=== PATIENT | male | born 1935 | race Caucasian/White ===

== ENCOUNTER → 2016-06-30 | Outpatient (REF) | payer MEDICARE ==
[~2016-06-30] MED LIST: /WARF5TA PO; ACET500T PO; ASPI81TA51 PO; FISHOIL OR; GABA300C2 PO; LISI5TAB PO; NEUR300C PO; PERCOCET PO; SIMV20TA2 PO; tramadol OR; vitamin B12 OR
[2016-06-30 11:39] LABS: INR 2.9
== END ==
LOC: M SFHCCLAY 08:23
PROVIDERS: ATTEND Family Medicine
DX: Z79.01 Long term (current) use of anticoagulants (principal)

== ENCOUNTER → 2016-07-28 | Outpatient (REF) | payer MEDICARE ==
[2016-07-28 11:46] LABS: INR 2.76
== END ==
LOC: M SFHCCLAY 07:46
PROVIDERS: ATTEND Family Medicine
DX: Z79.01 Long term (current) use of anticoagulants (principal)

== ENCOUNTER → 2016-08-25 | Outpatient (REF) | payer MEDICARE ==
[2016-08-25 12:13] LABS: INR 2.53
== END ==
LOC: M SFHCCLAY 07:51
PROVIDERS: ATTEND Family Medicine
DX: H34.9 Unspecified retinal vascular occlusion (principal)

== ENCOUNTER → 2016-09-22 | Outpatient (REF) | payer MEDICARE ==
[2016-09-22 13:13] LABS: INR 2.54
== END ==
LOC: M SFHCCLAY 07:30
PROVIDERS: ATTEND Family Medicine
DX: Z79.01 Long term (current) use of anticoagulants (principal)

== ENCOUNTER → 2016-10-19 | Outpatient (REF) | payer MEDICARE ==
[2016-10-19 12:20] LABS: INR 2.93
== END ==
LOC: M SFHCCLAY 07:31
PROVIDERS: ATTEND Family Medicine
DX: Z79.01 Long term (current) use of anticoagulants (principal)

== ENCOUNTER → 2016-11-15 | Outpatient (REF) | payer MEDICARE ==
[2016-11-15 11:31] LABS: INR 1.93
[2016-11-15 11:43] LABS: VITAMIN B12 LEVEL 449 PG/ML (247-911)
[2016-11-15 11:57] LABS: ALBUMIN 3.2 GM/DL (3.2-5.2); ALBUMIN/GLOBULIN RATIO 0.76 (1.00-1.93); ALKALINE PHOSPHATASE 61 U/L (45-117); ALT/SGPT 11 U/L (12-78); ANION GAP 9 MEQ/L (8-16); AST/SGOT 11 U/L (15-37); BILIRUBIN,TOTAL 0.3 MG/DL (0.2-1.0); BLOOD UREA NITROGEN 14 MG/DL (7-18); CALCIUM LEVEL 9.2 MG/DL (8.8-10.2); CARBON DIOXIDE LEVEL 26 MEQ/L (21-32); CHLORIDE LEVEL 105 MEQ/L (98-107); CHOLESTEROL LEVEL 110 MG/DL (<200); CREATININE FOR GFR 1.18 MG/DL (0.70-1.30); GLOMERULAR FILTRATION RATE > 60.0 (>35); GLUCOSE, FASTING 80 MG/DL (83-110); POTASSIUM SERUM 3.9 MEQ/L (3.5-5.1); SODIUM LEVEL 140 MEQ/L (136-145); TOTAL PROTEIN 7.4 GM/DL (6.4-8.2); TRIGLYCERIDES LEVEL 54 MG/DL (<150)
== END ==
LOC: M SFHCCLAY 07:23
PROVIDERS: ATTEND Family Medicine
DX: R41.3 Other amnesia (principal); H34.11 Central retinal artery occlusion, right eye

== ENCOUNTER → 2016-11-19 | Outpatient (CLI) | payer MEDICARE ==
--- NOTE | 2016-11-19 16:36 | REP ---
MRI BRAIN WITHOUT CONTRAST: HISTORY: Right eye visual loss. Scattered punctate areas of increased signal intensity on T2-weighted images are present in the periventricular and subcortical white matter. This represents small vessel ischemic disease. There is no intraparenchymal hemorrhage, infarct, mass or midline shift. The ventricular system and cortical sulci are dilated consistent with mild volume loss. There is no extracerebral collection. The sinuses are clear. IMPRESSION: 1. Small vessel ischemic disease. 2. Mild volume loss. Signed by Joseluis Tapia MD 11/19/2016 04:41 P
--- NOTE | 2016-11-19 16:49 | REP ---
MRA BRAIN WITHOUT CONTRAST: HISTORY: Right eye visual loss. 3D TOF MR angiography was performed at the level of the [place]. There is no aneurysm or arteriovenous malformation. Mild atherosclerotic disease involves the cavernous and supraclinoid internal carotid arteries. Major intracranial vessels are patent. The right vertebral artery is dominant. IMPRESSION: 1. There is no aneurysm or arteriovenous malformation. 2. Atherosclerotic disease as described above. Signed by Joseluis Tapia MD 11/19/2016 04:54 P
--- NOTE | 2016-11-22 09:35 | REP ---
URINARY BLADDER ULTRASOUND: Real-time sonographic evaluation of the urinary bladder performed. Bladder is mildly distended with no gross mass or calculus. It measures 7.1 x 7.7 x 4.4 cm for a total volume of 157 mL. Ureteral jets could not be visualized with Doppler color evaluation. Postvoid residual is 71 mL which is 45% of the original volume. IMPRESSION: No gross mass or calculus. Postvoid residual of 45% although the initial bladder volume is somewhat low as the bladder is not optimally distended. Signed by Trevin Snell MD 11/22/2016 08:16 P
== END ==
LOC: M RAD 12:46
PROVIDERS: ATTEND Family Medicine
DX: R41.3 Other amnesia (principal); H34.11 Central retinal artery occlusion, right eye

== ENCOUNTER → 2016-12-14 | Outpatient (REF) | payer MEDICARE ==
[~2016-12-14] MED LIST changes: +AMLO5TAB2 PO; +ASPI1TAB PO; +ASPI81TAEC PO; +CALC600T57 PO; +CARV3.12 PO; +CHLO125TA PO; +CHLO25TA PO; +FERR325T3 PO; +NITR0.4S14 SL; +PERI4TAB PO; +SIMV10TA2 PO; +VENL37.598 PO; +VENL75CA47 PO; +WARF-21 PO; +WARF-23 PO
[2016-12-14 12:06] LABS: INR 3.21
== END ==
LOC: M SFHCCLAY 07:23
PROVIDERS: ATTEND Family Medicine
DX: Z51.81 Encounter for therapeutic drug level monitoring (principal); Z79.01 Long term (current) use of anticoagulants

== ENCOUNTER 2016-12-20 22:54 | Inpatient (IN) | payer MEDICARE ==
[~2016-12-20] VITALS: Ht 175.3 cm; Wt 78.2 kg
[~2016-12-20 22:54] MED LIST changes: -AMLO5TAB2 PO; -ASPI1TAB PO; -ASPI81TAEC PO; -CALC600T57 PO; -CARV3.12 PO; -CHLO125TA PO; -CHLO25TA PO; -FERR325T3 PO; -NITR0.4S14 SL; -PERI4TAB PO; -SIMV10TA2 PO; -VENL37.598 PO; -VENL75CA47 PO; -WARF-21 PO; -WARF-23 PO
[2016-12-20] MEDS ORDERED: VENL37.598 PO (23:14)
[2016-12-20] MEDS ORDERED: NITR0.4S14 SL (23:14)
[2016-12-20] MEDS ORDERED: PERI4TAB PO (23:14)
[2016-12-20] MEDS ORDERED: SIMV10TA2 PO (23:14)
[2016-12-20] MEDS ORDERED: CARV3.12 PO (23:14)
[2016-12-20] MEDS ORDERED: CALC600T57 PO (23:14)
[2016-12-20] MEDS ORDERED: CHLO125TA PO (23:14)
[2016-12-20] MEDS ORDERED: ASPI1TAB PO (23:14)
[2016-12-20] MEDS ORDERED: AMLO5TAB2 PO (23:14)
[2016-12-20] MEDS ORDERED: NS 500 ML IV ONE (23:45)
[2016-12-21] VITALS (7 sets, daily range): BP systolic 101–138; BP diastolic 62–74
[2016-12-21 00:07] LABS: BASO % 0.6 % (0.0-1.0); EOS # 0.2 K/mm3 (0.0-0.50); LARGE UNSTAINED CELL # 0.2 K/mm3 (0.0-0.4); LARGE UNSTAINED CELL % 2.3 % (0.0-4.0); LYMPH # 1.4 K/mm3 (1.5-4.5); LYMPH % 15.2 % (24.0-44.0); MEAN CORPUSCULAR HEMOGLOBIN 21.8 pg (27.0-33.0); MEAN CORPUSCULAR HGB CONC 30.1 g/dl (32.0-36.5); MEAN CORPUSCULAR VOLUME 72.4 fl (80.0-96.0); MONO # 0.7 K/mm3 (0.0-0.8); MONO % 9.4 % (0.0-5.0); NEUTROPHILS # 5.4 K/mm3 (1.8-7.7); NEUTROPHILS % 69.4 % (36.0-66.0); PLATELET COUNT, AUTOMATED 566 k/mm3 (150-450); RED CELL DISTRIBUTION WIDTH 16.9 % (11.5-14.5); WHITE BLOOD COUNT 7.8 K/mm3 (4.0-10.0)
[2016-12-21 00:24] LABS: ALBUMIN/GLOBULIN RATIO 0.67 (1.00-1.93); ALKALINE PHOSPHATASE 61 U/L (45-117); ALT/SGPT 11 U/L (12-78); ANION GAP 7 MEQ/L (8-16); AST/SGOT 24 U/L (15-37); BILIRUBIN,DIRECT < 0.1 MG/DL (0.0-0.2); BILIRUBIN,TOTAL 0.3 MG/DL (0.2-1.0); BLOOD UREA NITROGEN 25 MG/DL (7-18); CALCIUM LEVEL 8.6 MG/DL (8.8-10.2); CARBON DIOXIDE LEVEL 26 MEQ/L (21-32); CHLORIDE LEVEL 100 MEQ/L (98-107); CREATININE FOR GFR 1.53 MG/DL (0.70-1.30); GLOMERULAR FILTRATION RATE 46.7 (>35); GLUCOSE, FASTING 97 MG/DL (83-110); POTASSIUM SERUM 4.3 MEQ/L (3.5-5.1); SODIUM LEVEL 133 MEQ/L (136-145); TOTAL PROTEIN 7.5 GM/DL (6.4-8.2)
[2016-12-21 00:37] LABS: INR 2.13
[2016-12-21] MEDS ORDERED: ONDANSETRON 4MG/2ML VIAL (J2405) IV PRN (01:00)
[2016-12-21] MEDS ORDERED: MORPHINE 2 MG/ML 1ML SYRINGE IV PRN (01:00)
[2016-12-21] MEDS ORDERED: NORCO, ANEXSIA 5/325MG TABLET (HYDROcodone/ACETAMINOPHEN) PO PRN (01:00)
[2016-12-21] MEDS ORDERED: ACETAMINOPHEN TAB 650MG DOSE (2X325MG) PO PRN (01:00)
[2016-12-21] MEDS ORDERED: KETOROLAC 30 MG/ML VIAL (J1885) IV PRN (01:00)
[2016-12-21] MEDS ORDERED: CHLO25TA PO (01:07)
[2016-12-21] MEDS ORDERED: ASPI81TAEC PO (01:07)
[2016-12-21] MEDS ORDERED: WARF-21 PO (01:07)
[2016-12-21] MEDS ORDERED: WARF-23 PO (01:07)
[2016-12-21] MEDS: LR 1,000 ML IV SCH ×2 (01:37→17:34)
[2016-12-21] MEDS: PIPERACILLIN/TAZOBACTAM SOD 3.375 GM in D5W MINI-BAG PLUS 50 ML IV SCH ×4 (02:23→20:12)
[2016-12-21] MEDS: CARVedilol 3.125 MG TAB PO SCH ×3 (02:30→20:12)
--- NOTE | 2016-12-21 05:26 | HPE ---
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 HISTORY OF PRESENT ILLNESS: The patient is a pleasant 81-year-old man who had presented at [facility] on the evening of December 20 complaining of abdominal pain. He had described discomfort increasing gradually over the last 5-7 days. This has always been in the right lower quadrant. It is a persistent discomfort which has worsened during this period of time. He apparently has been eating though his appetite may have been off. He denies any nausea or vomiting. He has had a bowel movement about a day or two ago and denies any changes bowel habits. He has not noticed any bleeding. The patient has not had any abdominal surgery other than an umbilical hernia repair approximately 20 years ago. In the emergency department at [facility], he underwent evaluation with physical exam, lab work, and a CT scan of the abdomen and pelvis. His lab work was unremarkable but the CT scan showed inflammatory changes around the cecum which had apparently been interpreted by the local radiologist as suggestive of appendicitis or possibly cecal carcinoma. I spoke with the physician psychiatric technician assistant (RICHELLE) about a possible transfer and he was accepted to the emergency department at [facility] for further evaluation and treatment. ALLERGIES: The patient has no known drug allergies. MEDICATIONS: - amlodipine 5 mg by mouth daily - carvedilol 3.125 mg by mouth twice daily - perindopril erbumine 6 mg by mouth daily at bedtime - nitroglycerin tablets sublingual as needed - warfarin 5 mg by mouth daily Tuesday through Tuesday and 7.5 mg on Tuesday - aspirin 81 mg by mouth daily - chlorthalidone 25 mg tablets one-half tablet daily - venlafaxine ER 75 mg by mouth daily - simvastatin 10 mg by mouth daily - calcium and vitamin D one tablet daily. MEDICAL HISTORY The patient has a history of hypertension. He has hyperlipidemia. He has a history of right retinal artery occlusion and a cerebrovascular accident and is on prolonged anticoagulation. He has a history of a rotator cuff tear on the right which his spouse reports is related to a previous fall. He has a history of heart disease. He has osteoarthritis. SURGICAL HISTORY: The patient has had a previous laminectomy in September 1990. He has had a cervical laminectomy in June 24, 1991. He had left knee surgery back in about 1989. He underwent a right knee replacement in December 1994. He had an umbilical herniorrhaphy in November 1997. He had a left total knee on January 23, 2013. He has had some skin lesions apparently including melanoma removed and had a previous lung biopsy done as well. FAMILY HISTORY: Significant for melanoma in his father, and his mother had heart failure. The patient is a former smoker who quit several years ago. He has never had a colonoscopy. He is accompanied to the emergency department by his spouse. REVIEW OF SYSTEMS: The patient denies any chest pain or palpitations. He has had no cough, wheezing or sputum production. He has had no history of seizure and has not had any recent headaches. He denies fevers or chills. PHYSICAL EXAMINATION In the emergency department reveals his most recent vital signs showing him to be afebrile with a pulse in the low 70s. Blood pressure of 110/60 approximately, and an O2 saturation of 92-95 on room air. He is alert and appears oriented. He responds appropriately to questions. He does turn to his for some details regarding his medical care. Skin is warm and dry. Sclerae are anicteric. Mucous membranes are moist. Neck is supple without mass. Heart exam shows a regular rate and rhythm without murmur. I do not hear a carotid bruit. The lungs are clear to auscultation bilaterally. The abdomen is mildly protuberant. He has an old, short curved infraumbilical scar. He has bowel sounds present in all four quadrants. There is some tenderness to percussion in the right lower quadrant medial to the anterior superior iliac spine. The abdomen is soft. He does not have guarding on the left side of the abdomen but there is some mild guarding in the right lower quadrant. He has moderate direct tenderness to palpation in the right mid to lower abdomen. There is no sign of hernia or inguinal adenopathy. He has no peripheral edema. He has palpable radial and dorsalis pedis pulses bilaterally. LABORATORY DATA: His laboratory studies at [facility] include a CBC showing a white count of 7.8 with a hemoglobin of 9, hematocrit of 30 and platelet count of 566,000. The differential count shows 69% neutrophils, 15% lymphocytes and 90% monocytes. His coagulation testing shows a PT of 24.6 with INR of 2.13 and PTT of 44.9. Chemistry profile shows a sodium of 133, potassium 4.3, chloride 100, CO2 of 26, BUN of 25, creatinine 1.53 and glucose of 97. Liver function tests are normal. The total protein of 7.5 and an albumin of 3.0. A lipase was 1.79. These are very similar to labs he had obtained at [facility] several hours earlier in the day at approximately 8 p.m. on 12/20. At that time his white count was 7.7 with a hematocrit of 28. He had a troponin less then 0.017 at [facility]. His magnesium was 2.1 which was within the normal limits and a lactic acid was 1.1. IMAGING: His CT scan from [facility] was provided on a disk. I reviewed the images personally. The images show no sign of free air or free fluid. He has no sign of intestinal obstruction. There is no hernia seen. He has some thickening in the wall of the cecum fairly diffusely. There appears to be some pericecal inflammation. On the coronal images in particular, it is possible to identify the appendix and this does not appear acutely inflamed. The terminal ileum is well seen and appears normal. Beyond the cecum, the wall of colon appears normal. IMPRESSION 1. Right lower quadrant pain with cecal thickening but relatively unremarkable laboratory studies. 2. History of cerebrovascular accident on anticoagulation with warfarin. 3. Hypertension. 4. Hyperlipidemia. 5. Right rotator cuff tear. 6. History of heart disease. 7. Osteoarthritis. PLAN The patient has a week of developing and worsening right lower quadrant discomfort. He has remained afebrile with a normal total white blood cell count and a not significantly abnormal differential count. He has, however, significant tenderness in the right lower quadrant over the area of the cecum. I do not believe that the thickening in the cecum represents cancer as I would anticipate that with no sign of obstruction that this would be a relatively painless condition. The appendix is at least partially well seen on the coronal images and this does not appear consistent with appendicitis. There is some fairly diffuse thickening in the wall of the cecum and it may be that this represents diverticulitis in this area. Despite his lack of fever and chills or elevated white count, I would think this warrants treatment with antibiotics with close observation in the hospital. I do not think he has enough findings to suggest appendicitis to warrant taking him for immediate surgery. He is also anticoagulated on his Coumadin and this would need to be reversed if we were to proceed with urgent surgery. I have recommended that we start him on Zosyn. This will be begun at 3.375 grams intravenous (IV) every six hours. He will receive pain medications as necessary. His cardiac medications will be continued. I will hold his Coumadin dose tonight. I may ask his family practice physician group to evaluate him and follow along during this hospital stay in the morning. The patient and his family were counseled regarding the plan for care and desire to proceed as I have recommended. I will repeat his complete blood count (CBC) and a basic metabolic panel (BMP) in the morning. He will be kept on some maintenance IV fluid, but I will let him continue with some clear liquids for now. MTDD
[2016-12-21] MEDS ORDERED: VENL75CA47 PO (07:29)
[2016-12-21 08:38] LABS: ADD MORPHOLOGY? YES; BASO % 0.5 % (0.0-1.0); EOS # 0.2 K/mm3 (0.0-0.50); EOS % 2.9 % (0.0-3.0); LARGE UNSTAINED CELL # 0.2 K/mm3 (0.0-0.4); LARGE UNSTAINED CELL % 1.8 % (0.0-4.0); LYMPH # 1.2 K/mm3 (1.5-4.5); LYMPH % 12.5 % (24.0-44.0); MEAN CORPUSCULAR HEMOGLOBIN 21.9 pg (27.0-33.0); MEAN CORPUSCULAR VOLUME 72.7 fl (80.0-96.0); MONO # 0.8 K/mm3 (0.0-0.8); MONO % 9.6 % (0.0-5.0); NEUTROPHILS # 6.2 K/mm3 (1.8-7.7); NEUTROPHILS % 72.6 % (36.0-66.0); PLATELET COUNT, AUTOMATED 564 k/mm3 (150-450); WHITE BLOOD COUNT 8.6 K/mm3 (4.0-10.0)
[2016-12-21 08:41] LABS: CREATININE FOR GFR 1.39 MG/DL (0.70-1.30); GLOMERULAR FILTRATION RATE 52.2 (>35); POTASSIUM SERUM 4.1 MEQ/L (3.5-5.1)
[2016-12-21] MEDS: VENLAFAXINE **XR** 75MG CAPSULE PO SCH (08:55)
[2016-12-21] MEDS: amLODIPine 5 MG TAB PO SCH (08:55)
[2016-12-21 10:04] LABS: MICROCYTOSIS 2+; POIKILOCYTOSIS 1+
--- NOTE | 2016-12-21 15:54 | IPNPDOC ---
Subjective Date Seen The patient was seen on 12/21/16. Subjective Chief Complaint/HPI The patient is a 81-year-old male admitted with a reason for visit of Cecal Diverticulitis. Constitutional: Denies: Chills Eyes: Reports: Pain Pulmonary: Denies: Dyspnea Cardiovascular: Denies: Chest Pain Gastrointestinal: Denies: Nausea, Vomiting Genitourinary: Denies: Dysuria Objective Physical Examination General Exam: Positive: Alert Neck Exam: Positive: JVD Chest Exam: Positive: Clear to auscultation Abdomen Exam: Positive: Normal bowel sounds, Tenderness (LLQ c deep palpation) , Negative: Mass Extremity Exam: Negative: Edema Psych Exam: Positive: Mental status NL Assessment /Plan Problems (1) Anemia Status: Acute (2) Cecal diverticulitis Status: Acute Response to Treatment: Improving Problem Text: D2 Zosyn no previous colonoscopy 12/21 CEA P (3) ANGELA (acute kidney injury) Problem Text: favor 2 dehydration/CTD/ACEI 12/21 improved to 22/1.4, 4.1 baseline cr 1.1 (4) Hypertension Response to Treatment: Stable Problem Text: CTD 25, perindopril 4 qhs held 2 ANGELA Stable on HD amlo and carvedilol (5) Microcytic anemia Status: Acute Problem Text: obvious Fe def concern lizzy on VKA and asa 81 (asa now held) 12/21 9.1, MCB 73%-check Fe and HO stools 12/20 hgb 9.0 06/2014 hgb 13.2, MCV 93! (6) Central retinal artery occlusion of right eye Status: Chronic Response to Treatment: Stable Problem Text: Continues on chronic VKA goal INR HD 5 QD x 7.5 M 12/21 INR 2.1; therefore, gave 5 (7) CAD (coronary artery disease) Status: Chronic Response to Treatment: Stable Problem Text: No active symptoms aspirin held 2 anemia Plan/VTE VTE Prophylaxis Ordered?: Yes VS, I&O, 24H, Fishbone Vital Signs/I&O Vital Signs Date Time Temp Pulse Resp B/P (MAP) Pulse Ox O2 Delivery O2 Flow Rate FiO2 12/21/16 14:00 97.7 78 18 136/74 (94) 95 Room Air I&O- Last 24 Hours up to 6 AM 12/21/16 06:00 Intake Total 365 ml Output Total 600 ml Balance -235 ml Laboratory Data 24H LABS Laboratory Tests 2 12/20/16 23:52: White Blood Count 7.8, Red Blood Count 4.13L, Hemoglobin 9.0L, Hematocrit 29.9L , Mean Corpuscular Volume 72.4L, Mean Corpuscular Hemoglobin 21.8L, Mean Corpuscular Hemoglobin Concent 30.1L, Red Cell Distribution Width 16.9H, Platelet Count 566H, Neutrophils (%) (Auto) 69.4H, Lymphocytes (%) (Auto) 15.2L , Monocytes (%) (Auto) 9.4H, Eosinophils (%) (Auto) 3.0, Basophils (%) (Auto) 0.6, Neutrophils # (Auto) 5.4, Lymphocytes # (Auto) 1.4L, Monocytes # (Auto) 0.7 , Eosinophils # (Auto) 0.2, Basophils # (Auto) 0.0, Large Unclassified Cells % 2.3, Large Unclassified Cells # 0.2, Prothrombin Time 24.6H, Prothromb Time International Ratio 2.13, Activated Partial Thromboplast Time 44.9H, Anion Gap 7L, Glomerular Filtration Rate 46.7, Calcium Level 8.6L, Aspartate Amino Transf (AST/SGOT) 24, Alanine Aminotransferase (ALT/SGPT) 11L, Alkaline Phosphatase 61 , Total Bilirubin 0.3, Direct Bilirubin < 0.1, Total Protein 7.5, Albumin 3.0L, Albumin/Globulin Ratio 0.67L, Lipase 179 12/21/16 07:54: White Blood Count 8.6, Red Blood Count 4.15L, Hemoglobin 9.1L, Hematocrit 30.2L , Mean Corpuscular Volume 72.7L, Mean Corpuscular Hemoglobin 21.9L, Mean Corpuscular Hemoglobin Concent 30.0L, Red Cell Distribution Width 17.0H, Platelet Count 564H, Neutrophils (%) (Auto) 72.6H, Lymphocytes (%) (Auto) 12.5L , Monocytes (%) (Auto) 9.6H, Eosinophils (%) (Auto) 2.9, Basophils (%) (Auto) 0.5, Neutrophils # (Auto) 6.2, Lymphocytes # (Auto) 1.2L, Monocytes # (Auto) 0.8 , Eosinophils # (Auto) 0.2, Basophils # (Auto) 0.0, Large Unclassified Cells % 1.8, Large Unclassified Cells # 0.2, Anion Gap 10, Glomerular Filtration Rate 52.2, Calcium Level 9.0, Platelet Estimate NORMAL, Poikilocytosis 1+, Microcytosis 2+, Blood Urea Nitrogen 22H, Creatinine 1.39H, Sodium Level 136, Potassium Level 4.1, Chloride Level 101, Carbon Dioxide Level 25 CBC/BMP Laboratory Tests 12/20/16 23:52 Red Blood Count 4.13 L, Mean Corpuscular Volume 72.4 L, Mean Corpuscular Hemoglobin 21.8 L, Mean Corpuscular Hemoglobin Concent 30.1 L, Red Cell Distribution Width 16.9 H, Neutrophils (%) (Auto) 69.4 H, Lymphocytes (%) (Auto ) 15.2 L, Monocytes (%) (Auto) 9.4 H, Eosinophils (%) (Auto) 3.0, Basophils (%) (Auto) 0.6, Neutrophils # (Auto) 5.4, Lymphocytes # (Auto) 1.4 L, Monocytes # ( Auto) 0.7, Eosinophils # (Auto) 0.2, Basophils # (Auto) 0.0 12/21/16 07:54 Red Blood Count 4.15 L, Mean Corpuscular Volume 72.7 L, Mean Corpuscular Hemoglobin 21.9 L, Mean Corpuscular Hemoglobin Concent 30.0 L, Red Cell Distribution Width 17.0 H, Neutrophils (%) (Auto) 72.6 H, Lymphocytes (%) (Auto ) 12.5 L, Monocytes (%) (Auto) 9.6 H, Eosinophils (%) (Auto) 2.9, Basophils (%) (Auto) 0.5, Neutrophils # (Auto) 6.2, Lymphocytes # (Auto) 1.2 L, Monocytes # ( Auto) 0.8, Eosinophils # (Auto) 0.2, Basophils # (Auto) 0.0, Calcium Level 9.0 Prasanna Nicholson M.D. Dec 21, 2016 15:54
[2016-12-21 16:59] LABS: INR 2.36
[2016-12-21] MEDS ORDERED: WARFARIN SOD 5 MG TAB PO ONE (17:00)
[2016-12-22] MEDS: PIPERACILLIN/TAZOBACTAM SOD 3.375 GM in D5W MINI-BAG PLUS 50 ML IV SCH ×4 (01:41→20:43)
[2016-12-22 02:00] VITALS: BP 112/65
[2016-12-22 06:00] VITALS: BP 111/65
[2016-12-22 06:12] LABS: ADD MORPHOLOGY? YES; BASO % 0.3 % (0.0-1.0); EOS # 0.2 K/mm3 (0.0-0.50); EOS % 2.3 % (0.0-3.0); INR 2.81; LARGE UNSTAINED CELL # 0.2 K/mm3 (0.0-0.4); LARGE UNSTAINED CELL % 3.2 % (0.0-4.0); LYMPH % 13.8 % (24.0-44.0); MEAN CORPUSCULAR HEMOGLOBIN 21.6 pg (27.0-33.0); MEAN CORPUSCULAR HGB CONC 29.3 g/dl (32.0-36.5); MEAN CORPUSCULAR VOLUME 73.8 fl (80.0-96.0); MONO # 0.7 K/mm3 (0.0-0.8); NEUTROPHILS # 5.2 K/mm3 (1.8-7.7); NEUTROPHILS % 70.3 % (36.0-66.0); PLATELET COUNT, AUTOMATED 591 k/mm3 (150-450); RED CELL DISTRIBUTION WIDTH 16.7 % (11.5-14.5); WHITE BLOOD COUNT 7.4 K/mm3 (4.0-10.0)
[2016-12-22 06:28] LABS: ALBUMIN 2.8 GM/DL (3.2-5.2); ALBUMIN/GLOBULIN RATIO 0.62 (1.00-1.93); BILIRUBIN,TOTAL 0.4 MG/DL (0.2-1.0); CREATININE FOR GFR 1.31 MG/DL (0.70-1.30); GLOMERULAR FILTRATION RATE 55.9 (>35); POTASSIUM SERUM 4.4 MEQ/L (3.5-5.1); TOTAL PROTEIN 7.3 GM/DL (6.4-8.2)
[2016-12-22 06:47] LABS: HYPOCHROMASIA 3+
[2016-12-22 06:48] LABS: ANISOCYTOSIS 1+; MICROCYTOSIS 2+; OVALOCYTES 1+
--- NOTE | 2016-12-22 08:37 | IPNPDOC ---
Subjective Date Seen The patient was seen on 12/22/16. Subjective Chief Complaint/HPI The patient is a 81-year-old male admitted with a reason for visit of Cecal Diverticulitis. Events since last encounter Denies c/o. Afebrile. Constitutional: Denies: Chills, Fever, Night Sweats Pulmonary: Denies: Dyspnea, Cough Cardiovascular: Denies: Chest Pain, Palpitations, Orthopnea, Paroxysmal Noc. Dyspnea, Lt Headedness Gastrointestinal: Denies: Nausea, Vomiting, Abdominal Pain, Diarrhea, Constipation, Melena Objective Physical Examination General Exam: Positive: Alert Neck Exam: Positive: JVD Chest Exam: Positive: Clear to auscultation Abdomen Exam: Positive: Normal bowel sounds, Tenderness (LLQ c deep palpation) , Negative: Mass Extremity Exam: Negative: Edema Psych Exam: Positive: Mental status NL Assessment /Plan Problems (1) Cecal diverticulitis Status: Acute Response to Treatment: Improving Problem Text: D3 Zosyn no previous colonoscopy 12/21 CEA 2.5 (2) Microcytic anemia Status: Acute Problem Text: 12/22 - hemoccult positive this afternoon; hold warfarin; recheck CBC in the AM; if H/H stable, consider d/c off of warfarin and arrange for outpatient colonoscopy; if H/H drops, he may need inpatient colonoscopy. (KES) obvious Fe def concern lizzy on VKA and asa 81 (asa now held) 12/21 9.1, MCB 73%-check Fe and HO stools 12/20 hgb 9.0 06/2014 hgb 13.2, MCV 93! (3) ANGELA (acute kidney injury) Problem Text: 12/22/16: improving Cr. Chlorthalidone and BETTY-I on HOLD. favor 2 dehydration/CTD/ACEI 12/21 improved to 22/1.4, 4.1 baseline cr 1.1 (4) Hypertension Response to Treatment: Stable Problem Specific Plan: Monitor Clinically Problem Text: CTD 25, perindopril 4 qhs held 2 ANGELA Stable on HD amlo and carvedilol (5) Central retinal artery occlusion of right eye Status: Chronic Response to Treatment: Stable Problem Text: Continues on chronic VKA goal INR HD 5 QD x 7.5 M 12/21 INR 2.1; therefore, gave 5 (6) CAD (coronary artery disease) Status: Chronic Response to Treatment: Stable Problem Text: No active symptoms aspirin held 2 anemia Plan/VTE VTE Prophylaxis Ordered?: Yes Plan Family Medicine Attending Note: I saw Mr. Larose this afternoon; I discussed his care with Kylah Ramirez NP and I agree with her note above. Patient is feeling better today and was tolerating lunch without difficulty at the time of my exam. Stool was hemoccult positive thereafter, though H/H is only down slightly from yesterday and he is asymptomatic. Consider inpatient vs. outpatient colonoscopy; recheck CBC in the morning. (KES) VS, I&O, 24H, Fishbone Vital Signs/I&O Vital Signs Date Time Temp Pulse Resp B/P (MAP) Pulse Ox O2 Delivery O2 Flow Rate FiO2 12/22/16 06:00 97.6 82 18 111/65 (80) 94 Room Air I&O- Last 24 Hours up to 6 AM 12/22/16 06:00 Intake Total 1700 ml Output Total 750 ml Balance 950 ml Laboratory Data 24H LABS Laboratory Tests 2 12/21/16 16:40: Prothrombin Time 26.7H, Prothromb Time International Ratio 2.36, Iron Level 22L , Total Iron Binding Capacity 369, Transferrin % Saturation 6.0L, Ferritin 31, Carcinoembryonic Antigen 2.5 12/22/16 05:41: Prothrombin Time 30.8H, Prothromb Time International Ratio 2.81, Iron Level 34L , Total Iron Binding Capacity 376, Transferrin % Saturation 9.0L, Ferritin 29, White Blood Count 7.4, Red Blood Count 4.03L, Hemoglobin 8.7L, Hematocrit 29.7L , Mean Corpuscular Volume 73.8L, Mean Corpuscular Hemoglobin 21.6L, Mean Corpuscular Hemoglobin Concent 29.3L, Red Cell Distribution Width 16.7H, Platelet Count 591H, Neutrophils (%) (Auto) 70.3H, Lymphocytes (%) (Auto) 13.8L , Monocytes (%) (Auto) 10.0H, Eosinophils (%) (Auto) 2.3, Basophils (%) (Auto) 0.3, Neutrophils # (Auto) 5.2, Lymphocytes # (Auto) 1.0L, Monocytes # (Auto) 0.7 , Eosinophils # (Auto) 0.2, Basophils # (Auto) 0.0, Large Unclassified Cells % 3.2, Large Unclassified Cells # 0.2, Platelet Estimate NORMAL, Hypochromasia 3+ , Anisocytosis 1+, Microcytosis 2+, Ovalocytes 1+, Activated Partial Thromboplast Time 51.3H, Anion Gap 9, Glomerular Filtration Rate 55.9, Blood Urea Nitrogen 12, Creatinine 1.31H, Sodium Level 135L, Potassium Level 4.4, Chloride Level 102, Carbon Dioxide Level 24, Calcium Level 9.0, Aspartate Amino Transf (AST/SGOT) 10L, Alanine Aminotransferase (ALT/SGPT) 9L, Alkaline Phosphatase 55, Total Bilirubin 0.4, Total Protein 7.3, Albumin 2.8L, Albumin/ Globulin Ratio 0.62L CBC/BMP Laboratory Tests 12/22/16 05:41 Red Blood Count 4.03 L, Mean Corpuscular Volume 73.8 L, Mean Corpuscular Hemoglobin 21.6 L, Mean Corpuscular Hemoglobin Concent 29.3 L, Red Cell Distribution Width 16.7 H, Neutrophils (%) (Auto) 70.3 H, Lymphocytes (%) (Auto ) 13.8 L, Monocytes (%) (Auto) 10.0 H, Eosinophils (%) (Auto) 2.3, Basophils (% ) (Auto) 0.3, Neutrophils # (Auto) 5.2, Lymphocytes # (Auto) 1.0 L, Monocytes # (Auto) 0.7, Eosinophils # (Auto) 0.2, Basophils # (Auto) 0.0, Calcium Level 9.0 , Aspartate Amino Transf (AST/SGOT) 10 L, Alanine Aminotransferase (ALT/SGPT) 9 L, Alkaline Phosphatase 55, Total Bilirubin 0.4, Total Protein 7.3, Albumin 2.8 L Kylah Ramirez Dec 22, 2016 08:37 JAMES ROSENBERG MD Dec 22, 2016 15:07
[2016-12-22] MEDS: CARVedilol 3.125 MG TAB PO SCH ×2 (09:00→20:44)
[2016-12-22] MEDS: amLODIPine 5 MG TAB PO SCH (09:00)
[2016-12-22] MEDS: VENLAFAXINE **XR** 75MG CAPSULE PO SCH (09:00)
[2016-12-22 10:00] VITALS: BP 118/75
[2016-12-22 14:00] VITALS: BP 134/74
[2016-12-22] MEDS ORDERED: WARFARIN SOD 5 MG TAB PO ONE (17:00)
[2016-12-22 18:00] VITALS: BP 129/70
[2016-12-22 22:00] VITALS: BP 130/79
[2016-12-23 02:00] VITALS: BP 112/67
[2016-12-23] MEDS: PIPERACILLIN/TAZOBACTAM SOD 3.375 GM in D5W MINI-BAG PLUS 50 ML IV SCH ×2 (02:10→07:47)
[2016-12-23 05:09] LABS: ADD MORPHOLOGY? YES; BASO % 0.5 % (0.0-1.0); EOS # 0.2 K/mm3 (0.0-0.50); EOS % 3.6 % (0.0-3.0); LARGE UNSTAINED CELL # 0.2 K/mm3 (0.0-0.4); LARGE UNSTAINED CELL % 2.6 % (0.0-4.0); LYMPH # 1.3 K/mm3 (1.5-4.5); LYMPH % 17.1 % (24.0-44.0); MEAN CORPUSCULAR HEMOGLOBIN 21.9 pg (27.0-33.0); MEAN CORPUSCULAR HGB CONC 29.9 g/dl (32.0-36.5); MEAN CORPUSCULAR VOLUME 73.3 fl (80.0-96.0); MONO # 0.7 K/mm3 (0.0-0.8); MONO % 10.3 % (0.0-5.0); NEUTROPHILS # 4.5 K/mm3 (1.8-7.7); PLATELET COUNT, AUTOMATED 531 k/mm3 (150-450); WHITE BLOOD COUNT 6.8 K/mm3 (4.0-10.0)
[2016-12-23 05:13] LABS: INR 2.82
[2016-12-23 05:32] LABS: ALBUMIN 2.7 GM/DL (3.2-5.2); ALBUMIN/GLOBULIN RATIO 0.57 (1.00-1.93); BILIRUBIN,TOTAL 0.3 MG/DL (0.2-1.0); CALCIUM LEVEL 9.1 MG/DL (8.8-10.2); CREATININE FOR GFR 1.31 MG/DL (0.70-1.30); GLOMERULAR FILTRATION RATE 55.9 (>35); POTASSIUM SERUM 3.8 MEQ/L (3.5-5.1); TOTAL PROTEIN 7.4 GM/DL (6.4-8.2)
[2016-12-23 05:34] LABS: ANISOCYTOSIS 1+; HYPOCHROMASIA 3+; MICROCYTOSIS 2+; OVALOCYTES 1+
[2016-12-23 06:00] VITALS: BP 107/68
[2016-12-23] MEDS: CARVedilol 3.125 MG TAB PO SCH (07:49)
[2016-12-23] MEDS: VENLAFAXINE **XR** 75MG CAPSULE PO SCH (07:49)
[2016-12-23 07:50] VITALS: BP 134/70
[2016-12-23] MEDS: amLODIPine 5 MG TAB PO SCH (07:50)
[2016-12-23 10:00] VITALS: BP 123/83
--- NOTE | 2016-12-24 09:00 | IPN ---
DATE: 12/23/2016 PRIMARY CARE PROVIDER: Dr. Bob Hurt The patient is being discharged by general surgery. It was noted that patient has a positive stool for occult blood. His aspirin and warfarin were subsequently held on discharge home. The patient is to followup with his primary care provider (PCP) within the next 2-4 days for further evaluation. If patient develops further abdominal pain, dizziness, or weakness, he is to seek emergent treatment. Patient is discharged in stable condition at time of discharge and was agreeable to discharge home after tolerating a regular diet and a normal bowel movement this morning.
[2017-01-26] MEDS ORDERED: FERR325T3 PO (09:45)
[2017-01-26] MEDS ORDERED: WARF-23 PO (09:47)
--- NOTE | 2017-02-08 18:33 | DSES ---
DATE OF ADMISSION: 12/21/2016 DATE OF DISCHARGE: 12/23/2016 ADMISSION DIAGNOSIS: Right lower quadrant abdominal pain, probable cecal diverticulitis. HISTORY OF PRESENT ILLNESS: The patient is a pleasant 81-year-old man who presented at [facility] on the evening of 12/20/2016 complaining of abdominal pain. He had described discomfort increasing gradually over 5-7 days. It was always located in the right lower quadrant. He had been able to eat though his appetite was somewhat off. He denied any nausea or vomiting. He had a bowel movement a day or two ago and denied any changes in his bowel habits. He had had no bleeding. A CT scan done in the [facility] Emergency Department suggested some inflammatory changes around the cecum which had apparently been interpreted by the local radiologist as suggestive of appendicitis or possible cecal carcinoma. The patient was accepted in transfer to [facility] for further evaluation. On arrival, his examination showed bowel sounds present in all four quadrants. He had some tenderness to percussion in the right lower quadrant, medial to the anterior superior iliac spine. The abdomen was soft. He had moderate direct tenderness to palpation in the right mid to lower abdomen. There was no sign of hernia. His laboratory studies were reviewed and his CT from [facility] was also reviewed on disk. The appendix was identified and did not appear acutely inflamed. He had some thickening in the wall of the cecum, fairly diffusely with some pericecal inflammation. The clinical picture was felt to be most consistent with cecal diverticulitis, though diverticulosis was not definitely identified. He was admitted for management. He was started on IV maintenance fluid and received Zosyn for antibiotic coverage. A consultation was obtained from the patient's primary care team. On 12/22/2016, he denied any abdominal pain. He had a large formed bowel movement and was tolerating a diet. His white count had fallen to 7.4. His IV fluid was discontinued. His antibiotics were continued for another day. He continued to make good progress and was discharged home on 12/23/2016. FINAL DIAGNOSES: 1. Right lower quadrant abdominal pain, probable cecal diverticulitis. 2. History of cerebrovascular accident, on anticoagulation with warfarin. 3. Hypertension. 4. Hyperlipidemia. 5. Right rotator cuff tear. 6. History of heart disease. 7. Osteoarthritis. DISPOSITION: The patient was discharged in good condition. He was to followup with Dr. Hurt in the office on 01/05/2017 at 11:00 o'clock. He could pursue activity as tolerated and take a diet as tolerated. He was to have his international normalized ratio (INR) checked on 12/27/2016 at his primary care provider's office. He was to continue his usual medications. The patient was not provided any new medications. JARED
== END 2016-12-23 12:28 | disposition home or self-care (01) | DRG 392 ==
LOC: EDBD 22:54 → M ED 22:54 → M ED INP 12-21 01:05 → M MSPAV 12-21 01:57
PROVIDERS: ADMIT Surgery; ATTEND Surgery
DX: K57.32 Diverticulitis of large intestine without perforation or abscess without bleeding (principal); N17.9 Acute kidney failure, unspecified; H34.11 Central retinal artery occlusion, right eye; I10 Essential (primary) hypertension; E78.5 Hyperlipidemia, unspecified; M19.90 Unspecified osteoarthritis, unspecified site; I25.10 Atherosclerotic heart disease of native coronary artery without angina pectoris; D50.9 Iron deficiency anemia, unspecified; Z79.01 Long term (current) use of anticoagulants; Z79.82 Long term (current) use of aspirin; Z79.899 Other long term (current) drug therapy; Z86.73 Personal history of transient ischemic attack (TIA), and cerebral infarction without residual deficits; Z96.653 Presence of artificial knee joint, bilateral; Z87.891 Personal history of nicotine dependence

== ENCOUNTER → 2016-12-27 | Outpatient (REF) | payer MEDICARE ==
[~2016-12-27] MED LIST changes: +AMLO5TAB2 PO; +ASPI1TAB PO; +ASPI81TAEC PO; +CALC600T57 PO; +CARV3.12 PO; +CHLO125TA PO; +CHLO25TA PO; +FERR325T3 PO; +NITR0.4S14 SL; +PERI4TAB PO; +SIMV10TA2 PO; +VENL37.598 PO; +VENL75CA47 PO; +WARF-21 PO; +WARF-23 PO
[2016-12-27 18:21] LABS: VITAMIN B12 LEVEL 571 PG/ML (247-911)
[2016-12-27 18:22] LABS: FOLATE 21.2 NG/ML (>5.4)
[2016-12-27 18:38] LABS: ADD MORPHOLOGY? YES; BASO # 0.1 K/mm3 (0.0-0.2); BASO % 0.8 % (0.0-1.0); EOS # 0.2 K/mm3 (0.0-0.50); EOS % 2.1 % (0.0-3.0); LARGE UNSTAINED CELL # 0.2 K/mm3 (0.0-0.4); LARGE UNSTAINED CELL % 2.2 % (0.0-4.0); LYMPH % 13.9 % (24.0-44.0); MEAN CORPUSCULAR HGB CONC 29.3 g/dl (32.0-36.5); MEAN CORPUSCULAR VOLUME 75.1 fl (80.0-96.0); MONO # 0.6 K/mm3 (0.0-0.8); NEUTROPHILS # 5.5 K/mm3 (1.8-7.7); NEUTROPHILS % 73.1 % (36.0-66.0); PLATELET COUNT, AUTOMATED 793 k/mm3 (150-450); RED CELL DISTRIBUTION WIDTH 16.7 % (11.5-14.5); WHITE BLOOD COUNT 7.5 K/mm3 (4.0-10.0)
[2016-12-27 20:25] LABS: ANISOCYTOSIS 1+; HYPOCHROMASIA 2+; MICROCYTOSIS 2+
== END ==
LOC: M SFHCCLAY 09:48
PROVIDERS: ATTEND Family Medicine
DX: D50.0 Iron deficiency anemia secondary to blood loss (chronic) (principal); F03.90 Unspecified dementia, unspecified severity, without behavioral disturbance, psychotic disturbance, mood disturbance, and anxiety; K57.33 Diverticulitis of large intestine without perforation or abscess with bleeding; I10 Essential (primary) hypertension; Z79.899 Other long term (current) drug therapy
CPT/HCPCS: 36415; 82607; 82746; 85025; 86780; G0463

== ENCOUNTER → 2017-01-14 | Outpatient (REF) | payer MEDICARE ==
[2017-01-14 17:00] LABS: MEAN CORPUSCULAR HGB CONC 30.3 g/dl (32.0-36.5); MEAN CORPUSCULAR VOLUME 79.2 fl (80.0-96.0); RED CELL DISTRIBUTION WIDTH 21.2 % (11.5-14.5); WHITE BLOOD COUNT 7.3 K/mm3 (4.0-10.0)
== END ==
LOC: M SFHCCLAY 11:04
PROVIDERS: ATTEND Family Medicine
DX: D50.0 Iron deficiency anemia secondary to blood loss (chronic) (principal)
CPT/HCPCS: 83540; 85027; G0463

== ENCOUNTER 2017-02-03 08:21 | Outpatient (CLI) | payer MEDICARE ==
[~2017-02-03] VITALS: Ht 167.6 cm; Wt 78.5 kg
[2017-02-03] MEDS ORDERED: LIDOCAINE 2% INJ 100 MG/5 ML SDV (FOR ANES.) As Ordered ONE (09:40)
[2017-02-03] MEDS ORDERED: PROPOFOL 500 MG/50 ML VIAL As Ordered ONE (09:40)
[2017-02-03] MEDS ORDERED: LR 1,000 ML IV SCH (10:15)
[2017-02-03] MEDS ORDERED: ePHEDrine SULFATE 25 MG/5 ML(5MG/ML) SYRINGE As Ordered ONE (10:30)
--- NOTE | 2017-02-03 11:14 | ROOR ---
Patient Name: Parker Larose Procedure Date: 02/03/2017 10:16 AM Date of : 1935 Age: 81 Room: [facility] Gender: Male Note Status: Finalized Procedure: Upper GI endoscopy Indications: Iron deficiency anemia Providers: Von Vazquez MD Referring MD: Bob Hurt MD Requesting Provider: Medicines: Monitored Anesthesia Care Complications: No immediate complications. Procedure: Pre-Anesthesia Assessment: - Prior to the procedure, a History and Physical was performed, and patient medications and allergies were reviewed. The patient is competent. The risks and benefits of the procedure and the sedation options and risks were discussed with the patient. All questions were answered and informed consent was obtained. Patient identification and proposed procedure were verified by the physician, the nurse and the anesthesiologist in the procedure room. Mental Status Examination: alert and oriented. Airway Examination: normal oropharyngeal airway and neck mobility. CV Examination: regular rate and rhythm. Prophylactic Antibiotics: The patient does not require prophylactic antibiotics. Prior Anticoagulants: The patient has taken no previous anticoagulant or antiplatelet agents. ASA Grade Assessment: III - A patient with severe systemic disease. After reviewing the risks and benefits, the patient was deemed in satisfactory condition to undergo the procedure. The anesthesia plan was to use monitored anesthesia care (MAC). Immediately prior to administration of medications, the patient was re-assessed for adequacy to receive sedatives. The heart rate, respiratory rate, oxygen saturations, blood pressure, adequacy of pulmonary ventilation, and response to care were monitored throughout the procedure. The physical status of the patient was re-assessed after the procedure. The Endoscope was introduced through the mouth, and advanced to the second part of duodenum. The upper GI endoscopy was accomplished without difficulty. The patient tolerated the procedure well. Findings: The examined esophagus was normal. A small hiatal hernia was present. The entire examined stomach was normal. The first portion of the duodenum and second portion of the duodenum were normal. Impression: - Normal esophagus. - Small hiatal hernia. - Normal stomach. - Normal first portion of the duodenum and second portion of the duodenum. - No specimens collected. Recommendation: - Discharge patient to home. - Resume previous diet. - Continue present medications. Von Vazquez MD 02/03/2017 11:14:04 AM Number of Addenda: 0 Note Initiated On: 02/03/2017 10:16 AM Estimated Blood Loss: Estimated blood loss: none.
--- NOTE | 2017-02-03 11:19 | ROOR ---
Patient Name: Parker Larose Procedure Date: 02/03/2017 10:16 AM Date of : 1935 Age: 81 Room: [facility] Gender: Male Note Status: Finalized Procedure: Colonoscopy Indications: Iron deficiency anemia, Abnormal CT of the GI tract - thickening in cecum on recent CT Providers: Von Vazquez MD Referring MD: Bob Hurt MD Requesting Provider: Medicines: Monitored Anesthesia Care Complications: No immediate complications. Procedure: Pre-Anesthesia Assessment: - Prior to the procedure, a History and Physical was performed, and patient medications and allergies were reviewed. The patient is competent. The risks and benefits of the procedure and the sedation options and risks were discussed with the patient. All questions were answered and informed consent was obtained. Patient identification and proposed procedure were verified by the physician, the nurse and the anesthesiologist in the procedure room. Mental Status Examination: alert and oriented. Airway Examination: normal oropharyngeal airway and neck mobility. CV Examination: regular rate and rhythm. Prophylactic Antibiotics: The patient does not require prophylactic antibiotics. Prior Anticoagulants: The patient has taken no previous anticoagulant or antiplatelet agents. ASA Grade Assessment: III - A patient with severe systemic disease. After reviewing the risks and benefits, the patient was deemed in satisfactory condition to undergo the procedure. The anesthesia plan was to use monitored anesthesia care (MAC). Immediately prior to administration of medications, the patient was re-assessed for adequacy to receive sedatives. The heart rate, respiratory rate, oxygen saturations, blood pressure, adequacy of pulmonary ventilation, and response to care were monitored throughout the procedure. The physical status of the patient was re-assessed after the procedure. The Colonoscope was introduced through the anus and advanced to the cecum, identified by appendiceal orifice and ileocecal valve. The colonoscopy was performed without difficulty. The patient tolerated the procedure well. The quality of the bowel preparation was excellent. Findings: The perianal and digital rectal examinations were normal. Many medium-mouthed diverticula were found in the sigmoid colon and distal descending colon. Multiple medium-mouthed diverticula were found in the descending colon, splenic flexure, transverse colon, hepatic flexure and ascending colon. A 6 mm polyp was found in the sigmoid colon. The polyp was sessile. The polyp was removed with a hot snare. Resection and retrieval were complete. Impression: - Diverticulosis in the sigmoid colon and in the distal descending colon. - Diverticulosis in the descending colon, at the splenic flexure, in the transverse colon, at the hepatic flexure and in the ascending colon. - One 6 mm polyp in the sigmoid colon, removed with a hot snare. Resected and retrieved. Recommendation: - Await pathology results. - Telephone endoscopist for pathology results in 1 week. Von Vazquez MD 02/03/2017 11:19:32 AM Number of Addenda: 0 Note Initiated On: 02/03/2017 10:16 AM Estimated Blood Loss: Estimated blood loss: none.
[2017-02-03 11:40] VITALS: BP 116/71
== END 2017-02-03 11:57 | disposition home or self-care (01) ==
LOC: M OPP 08:21
PROVIDERS: ATTEND Surgery
DX: K57.30 Diverticulosis of large intestine without perforation or abscess without bleeding (principal); D12.5 Benign neoplasm of sigmoid colon; K44.9 Diaphragmatic hernia without obstruction or gangrene; I11.9 Hypertensive heart disease without heart failure; I51.9 Heart disease, unspecified; J44.9 Chronic obstructive pulmonary disease, unspecified; E78.00 Pure hypercholesterolemia, unspecified; M19.90 Unspecified osteoarthritis, unspecified site; G98.8 Other disorders of nervous system; F03.90 Unspecified dementia, unspecified severity, without behavioral disturbance, psychotic disturbance, mood disturbance, and anxiety; F33.9 Major depressive disorder, recurrent, unspecified; Z86.73 Personal history of transient ischemic attack (TIA), and cerebral infarction without residual deficits; Z96.9 Presence of functional implant, unspecified; Z87.891 Personal history of nicotine dependence; Z79.82 Long term (current) use of aspirin; Z79.01 Long term (current) use of anticoagulants; Z79.899 Other long term (current) drug therapy

== ENCOUNTER → 2017-02-21 | Outpatient (REF) | payer MEDICARE ==
[2017-02-21 11:42] LABS: INR 1.97
== END ==
LOC: M SFHCCLAY 07:32
PROVIDERS: ATTEND Family Medicine
DX: Z79.01 Long term (current) use of anticoagulants (principal)

== ENCOUNTER → 2017-03-01 | Outpatient (REF) | payer MEDICARE ==
[2017-03-01 13:01] LABS: INR 2.66
== END ==
LOC: M SFHCCLAY 07:43
PROVIDERS: ATTEND Family Medicine
DX: Z79.01 Long term (current) use of anticoagulants (principal)

== ENCOUNTER → 2017-03-08 | Outpatient (REF) | payer MEDICARE ==
[2017-03-08 12:06] LABS: INR 2.92
== END ==
LOC: M SFHCCLAY 07:50
PROVIDERS: ATTEND Family Medicine
DX: Z51.81 Encounter for therapeutic drug level monitoring (principal); Z79.01 Long term (current) use of anticoagulants

== ENCOUNTER → 2017-03-15 | Outpatient (REF) | payer MEDICARE ==
[2017-03-15 12:18] LABS: MEAN CORPUSCULAR HEMOGLOBIN 26.8 pg (27.0-33.0); MEAN CORPUSCULAR HGB CONC 31.3 g/dl (32.0-36.5); MEAN CORPUSCULAR VOLUME 85.7 fl (80.0-96.0); WHITE BLOOD COUNT 7.4 10^3/uL (4.0-10.0)
[2017-03-15 12:27] LABS: RED CELL DISTRIBUTION WIDTH 22.8 % (11.5-14.5)
== END ==
LOC: M SFHCCLAY 07:40
PROVIDERS: ATTEND Family Medicine
DX: D50.0 Iron deficiency anemia secondary to blood loss (chronic) (principal); Z51.81 Encounter for therapeutic drug level monitoring; Z79.01 Long term (current) use of anticoagulants; Z23 Encounter for immunization

== ENCOUNTER → 2017-03-22 | Outpatient (REF) | payer MEDICARE ==
[2017-03-22 11:57] LABS: INR 2.11
== END ==
LOC: M SFHCCLAY 07:39
PROVIDERS: ATTEND Family Medicine
DX: Z79.01 Long term (current) use of anticoagulants (principal)

== ENCOUNTER → 2017-04-19 | Outpatient (REF) | payer MEDICARE ==
[2017-04-19 12:14] LABS: INR 1.62
== END ==
LOC: M SFHCCLAY 07:59
PROVIDERS: ATTEND Family Medicine
DX: Z79.01 Long term (current) use of anticoagulants (principal)

== ENCOUNTER 2017-05-11 06:16 | Day surgery (SDC) | payer MEDICARE ==
[~2017-05-11] VITALS: Ht 175.3 cm; Wt 79.3 kg
[~2017-05-11 06:16] MED LIST changes: +ACETAMINOPHEN 325 MG TAB PO PRN
[2017-05-11] MEDS ORDERED: LIDOCAINE 3.5 % 1ML OPHTH TOPICAL GEL OU ONE (07:00)
[2017-05-11] MEDS ORDERED: TROPICAMIDE 1% OPHTH SOLN 2ML OS ONE (07:00)
[2017-05-11] MEDS ORDERED: OFLOXACIN 0.3 % (OCUFLOX) OPTH SOL 5ML OS ONE (07:00)
[2017-05-11] MEDS ORDERED: PHENYLEPHRINE 2.5% OPHTH SOL 2ML OS ONE (07:00)
[2017-05-11] MEDS ORDERED: CYCLOPENTOLATE 2% OPHTH SOLN 2ML BTL OS ONE (07:00)
[2017-05-11] MEDS ORDERED: BSS with VANC/TOB/EPI for EYE CASES IR ONE (07:00)
[2017-05-11] MEDS ORDERED: PROPARACAINE 0.5% OPHTH SOL 15ML OS PRN (07:01)
[2017-05-11] MEDS ORDERED: LIDOCAINE 1% SDV 5 ML VIAL As Ordered ONE (07:09)
[2017-05-11] MEDS ORDERED: POVIDONE-IODINE 5% OPHTH PREP SOL 30ML As Ordered ONE (07:09)
[2017-05-11] MEDS ORDERED: TRIAMCINOLONE PRES FR 40 MG/ML 1ML(TRIESENCE)(OR EYE ONLY)(J3300 PER 1MG) As Ordered ONE (07:10)
[2017-05-11] MEDS ORDERED: HEALON DUET (HEALON 10MG/ML 0.55ML & HEALON ENDOCOAT 30MG/ML 0.85ML) As Ordered ONE ×2 (07:10→07:11)
[2017-05-11] MEDS ORDERED: MOXIFLOXACIN IN BSS 0.25MG/0.25ML INTRACAMERAL INJ (OR EYE ONLY)(J2280) As Ordered ONE (07:11)
[2017-05-11] MEDS ORDERED: MIDAZOLAM INJ 2 MG/2 ML VIAL (J2250) As Ordered ONE (07:40)
[2017-05-11] MEDS ORDERED: fentaNYL 100 MCG/2 ML INJECTION (J3010) As Ordered ONE (07:40)
[2017-05-11] MEDS ORDERED: LR 1,000 ML IV SCH (09:00)
[2017-05-11] MEDS ORDERED: ACETAMINOPHEN TAB 650MG DOSE (2X325MG) PO PRN (09:00)
[2017-05-11] MEDS ORDERED: ONDANSETRON 4MG/2ML VIAL (J2405) IV PRN (09:00)
[2017-05-11] MEDS ORDERED: TRIMETHOBENZAMIDE 300 MG CAP PO PRN (09:15)
[2017-05-11] MEDS ORDERED: AcetaZOLAMIDE 500 MG ER CAP PO ONE (09:15)
[2017-05-11 09:25] VITALS: BP 138/83
== END 2017-05-11 09:26 | disposition home or self-care (01) ==
LOC: M SDC 06:16
PROVIDERS: ATTEND Ophthalmology
DX: H26.9 Unspecified cataract (principal); I10 Essential (primary) hypertension; E78.00 Pure hypercholesterolemia, unspecified; K57.92 Diverticulitis of intestine, part unspecified, without perforation or abscess without bleeding; D64.9 Anemia, unspecified; M19.90 Unspecified osteoarthritis, unspecified site; M45.9 Ankylosing spondylitis of unspecified sites in spine; F03.90 Unspecified dementia, unspecified severity, without behavioral disturbance, psychotic disturbance, mood disturbance, and anxiety; F32.9 Major depressive disorder, single episode, unspecified; Z86.73 Personal history of transient ischemic attack (TIA), and cerebral infarction without residual deficits; H54.413A Blindness right eye category 3, normal vision left eye; Z87.891 Personal history of nicotine dependence; Z79.899 Other long term (current) drug therapy; Z79.82 Long term (current) use of aspirin; Z79.01 Long term (current) use of anticoagulants
CPT/HCPCS: 66984; J2250; J2280; J3010; J3300; V2632

== ENCOUNTER → 2017-05-18 | Outpatient (REF) | payer MEDICARE ==
[~2017-05-18] MED LIST changes: -ACETAMINOPHEN 325 MG TAB PO PRN
[2017-05-18 11:28] LABS: INR 1.18
== END ==
LOC: M SFHCCLAY 07:51
PROVIDERS: ATTEND Family Medicine
DX: Z79.01 Long term (current) use of anticoagulants (principal)

== ENCOUNTER → 2017-06-01 | Outpatient (REF) | payer MEDICARE ==
[2017-06-01 11:52] LABS: INR 1.96
== END ==
LOC: M SFHCCLAY 07:20
DX: Z79.01 Long term (current) use of anticoagulants (principal)
CPT/HCPCS: 85610

== ENCOUNTER → 2017-06-29 | Outpatient (REF) | payer MEDICARE ==
[2017-06-29 13:35] LABS: INR 2.36; PROTHROMBIN TIME 26.7 SECONDS (12.4-14.5)
== END ==
LOC: M SFHCCLAY 08:12
DX: Z79.01 Long term (current) use of anticoagulants (principal)
CPT/HCPCS: 85610

== ENCOUNTER → 2017-07-27 | Outpatient (REF) | payer MEDICARE ==
[2017-07-27 11:36] LABS: INR 2.48; PROTHROMBIN TIME 27.8 SECONDS (12.4-14.5)
== END ==
LOC: M SFHCCLAY 07:34
DX: Z51.81 Encounter for therapeutic drug level monitoring (principal); Z79.01 Long term (current) use of anticoagulants
CPT/HCPCS: 85610

== ENCOUNTER → 2017-08-10 | Outpatient (REF) | payer MEDICARE ==
[2017-08-10 16:48] LABS: HEMATOCRIT 40.7 % (42.0-52.0); HEMOGLOBIN 13.1 g/dl (14.0-18.0); MEAN CORPUSCULAR HEMOGLOBIN 28.7 pg (27.0-33.0); MEAN CORPUSCULAR HGB CONC 32.2 g/dl (32.0-36.5); MEAN CORPUSCULAR VOLUME 89.3 fl (80.0-96.0); PLATELET COUNT, AUTOMATED 506 10^3/uL (150-450); RED BLOOD COUNT 4.56 10^6/uL (4.30-6.10); RED CELL DISTRIBUTION WIDTH 14.4 % (11.5-14.5); WHITE BLOOD COUNT 10.8 10^3/uL (4.0-10.0)
[2017-08-10 19:17] LABS: IRON (FE) 44 UG/DL (65-175)
[2017-08-10 19:28] LABS: ANION GAP 11 MEQ/L (8-16); BLOOD UREA NITROGEN 19 MG/DL (7-18); CALCIUM LEVEL 9.1 MG/DL (8.8-10.2); CARBON DIOXIDE LEVEL 25 MEQ/L (21-32); CHLORIDE LEVEL 99 MEQ/L (98-107); CREATININE FOR GFR 1.45 MG/DL (0.70-1.30); GLOMERULAR FILTRATION RATE 49.6 (>35); GLUCOSE, FASTING 87 MG/DL (70-100); POTASSIUM SERUM 4.7 MEQ/L (3.5-5.1); SODIUM LEVEL 135 MEQ/L (136-145)
== END ==
LOC: M SFHCCLAY 13:31
DX: J40 Bronchitis, not specified as acute or chronic (principal); I10 Essential (primary) hypertension; R41.3 Other amnesia; D50.9 Iron deficiency anemia, unspecified; Z79.899 Other long term (current) drug therapy
CPT/HCPCS: 83540

== ENCOUNTER → 2017-08-24 | Outpatient (REF) | payer MEDICARE ==
[2017-08-24 11:38] LABS: INR 2.18
== END ==
LOC: M SFHCCLAY 07:31
DX: Z51.81 Encounter for therapeutic drug level monitoring (principal); Z79.01 Long term (current) use of anticoagulants
CPT/HCPCS: 85610

== ENCOUNTER → 2017-09-21 | Outpatient (REF) | payer MEDICARE ==
[2017-09-21 12:59] LABS: INR 2.56; PROTHROMBIN TIME 28.6 SECONDS (12.4-14.5)
== END ==
LOC: M SFHCCLAY 07:15
DX: Z79.01 Long term (current) use of anticoagulants (principal)
CPT/HCPCS: 85610

== ENCOUNTER → 2017-10-19 | Outpatient (REF) | payer MEDICARE ==
[2017-10-19 11:56] LABS: PROTHROMBIN TIME 31.6 SECONDS (12.4-14.5)
== END ==
LOC: M SFHCCLAY 07:18
DX: Z79.01 Long term (current) use of anticoagulants (principal)
CPT/HCPCS: 85610

== ENCOUNTER → 2017-11-09 | Outpatient (REF) | payer MEDICARE ==
[2017-11-09 11:25] LABS: INR 2.68; PROTHROMBIN TIME 29.6 SECONDS (12.4-14.5)
== END ==
LOC: M SFHCCLAY 07:35
DX: Z51.81 Encounter for therapeutic drug level monitoring (principal); Z79.01 Long term (current) use of anticoagulants; H34.9 Unspecified retinal vascular occlusion
CPT/HCPCS: 85610

== ENCOUNTER → 2017-12-06 | Outpatient (REF) | payer MEDICARE ==
[2017-12-06 11:30] LABS: INR 1.81; PROTHROMBIN TIME 21.3 SECONDS (12.1-14.4)
== END ==
LOC: M SFHCCLAY 07:38
DX: Z51.81 Encounter for therapeutic drug level monitoring (principal); Z79.01 Long term (current) use of anticoagulants; H34.9 Unspecified retinal vascular occlusion
CPT/HCPCS: 85610

== ENCOUNTER → 2017-12-13 | Outpatient (REF) | payer MEDICARE ==
[2017-12-13 11:51] LABS: INR 2.62; PROTHROMBIN TIME 28.6 SECONDS (12.1-14.4)
== END ==
LOC: M SFHCCLAY 06:55
DX: Z51.81 Encounter for therapeutic drug level monitoring (principal); Z79.01 Long term (current) use of anticoagulants
CPT/HCPCS: 85610

== ENCOUNTER → 2017-12-27 | Outpatient (REF) | payer MEDICARE ==
[2017-12-27 11:33] LABS: INR 1.65; PROTHROMBIN TIME 19.8 SECONDS (12.1-14.4)
== END ==
LOC: M SFHCCLAY 07:08
DX: Z79.01 Long term (current) use of anticoagulants (principal)
CPT/HCPCS: 85610

== ENCOUNTER → 2018-01-10 | Outpatient (REF) | payer MEDICARE ==
[2018-01-10 12:04] LABS: INR 2.72; PROTHROMBIN TIME 29.4 SECONDS (12.1-14.4)
== END ==
LOC: M SFHCCLAY 07:58
DX: Z79.01 Long term (current) use of anticoagulants (principal)
CPT/HCPCS: 85610

== ENCOUNTER → 2018-01-24 | Outpatient (REF) | payer MEDICARE ==
[2018-01-24 11:57] LABS: INR 2.22; PROTHROMBIN TIME 25.1 SECONDS (12.1-14.4)
== END ==
LOC: M SFHCCLAY 08:13
DX: Z51.81 Encounter for therapeutic drug level monitoring (principal); Z79.01 Long term (current) use of anticoagulants
CPT/HCPCS: 85610

== ENCOUNTER → 2018-02-21 | Outpatient (REF) | payer MEDICARE ==
[2018-02-21 11:39] LABS: INR 2.32; PROTHROMBIN TIME 25.9 SECONDS (12.1-14.4)
== END ==
LOC: M SFHCCLAY 07:34
DX: Z79.01 Long term (current) use of anticoagulants (principal)
CPT/HCPCS: 85610

== ENCOUNTER → 2018-03-21 | Outpatient (REF) | payer MEDICARE ==
[2018-03-21 11:42] LABS: INR 3.41; PROTHROMBIN TIME 35.2 SECONDS (12.1-14.4)
== END ==
LOC: M SFHCCLAY 07:49
DX: Z51.81 Encounter for therapeutic drug level monitoring (principal); Z79.01 Long term (current) use of anticoagulants
CPT/HCPCS: 85610

== ENCOUNTER → 2018-04-04 | Outpatient (REF) | payer MEDICARE ==
[2018-04-04 12:03] LABS: INR 2.37; PROTHROMBIN TIME 26.4 SECONDS (12.1-14.4)
== END ==
LOC: M SFHCCLAY 09:27
DX: Z79.01 Long term (current) use of anticoagulants (principal); H34.9 Unspecified retinal vascular occlusion
CPT/HCPCS: 85610

== ENCOUNTER → 2018-04-11 | Outpatient (REF) | payer MEDICARE ==
[2018-04-11 19:02] LABS: HEMATOCRIT 42.5 % (42.0-52.0); HEMOGLOBIN 13.6 g/dl (13.5-17.5); MEAN CORPUSCULAR HEMOGLOBIN 29.8 pg (27.0-33.0); PLATELET COUNT, AUTOMATED 439 10^3/uL (150-450); RED BLOOD COUNT 4.57 10^6/uL (4.30-6.10); RED CELL DISTRIBUTION WIDTH 14.3 % (11.5-14.5); WHITE BLOOD COUNT 8.8 10^3/uL (4.0-10.0)
[2018-04-11 19:25] LABS: ANION GAP 7 MEQ/L (8-16); BLOOD UREA NITROGEN 16 MG/DL (7-18); CALCIUM LEVEL 9.1 MG/DL (8.8-10.2); CARBON DIOXIDE LEVEL 27 MEQ/L (21-32); CHLORIDE LEVEL 100 MEQ/L (98-107); GLOMERULAR FILTRATION RATE 51.5 (>35); GLUCOSE, FASTING 76 MG/DL (70-100); IRON (FE) 82 UG/DL (65-175); POTASSIUM SERUM 4.7 MEQ/L (3.5-5.1); SODIUM LEVEL 134 MEQ/L (136-145); TOTAL IRON BINDING CAPACITY 342 UG/DL (250-450)
== END ==
LOC: M SFHCCLAY 13:34
DX: D50.9 Iron deficiency anemia, unspecified (principal); I10 Essential (primary) hypertension; H34.9 Unspecified retinal vascular occlusion
CPT/HCPCS: 83550

== ENCOUNTER → 2018-04-18 | Outpatient (REF) | payer MEDICARE ==
[2018-04-18 12:32] LABS: INR 2.45; PROTHROMBIN TIME 27.1 SECONDS (12.1-14.4)
== END ==
LOC: M SFHCCLAY 07:30
DX: Z51.81 Encounter for therapeutic drug level monitoring (principal); Z79.01 Long term (current) use of anticoagulants
CPT/HCPCS: 85610

== ENCOUNTER → 2018-05-16 | Outpatient (REF) | payer MEDICARE ==
[2018-05-16 14:18] LABS: INR 2.04; PROTHROMBIN TIME 23.4 SECONDS (12.1-14.4)
== END ==
LOC: M SFHCCLAY 08:56
DX: Z79.01 Long term (current) use of anticoagulants (principal)
CPT/HCPCS: 85610

== ENCOUNTER → 2018-06-13 | Outpatient (REF) | payer MEDICARE ==
[~2018-06-13] MED LIST changes: -AMLO5TAB2 PO; +AMLO5TAB6 PO
[2018-06-13 13:11] LABS: INR 2.45; PROTHROMBIN TIME 27.1 SECONDS (12.1-14.4)
== END ==
LOC: M SFHCCLAY 07:48
PROVIDERS: ATTEND Family Medicine
DX: Z79.01 Long term (current) use of anticoagulants (principal)

== ENCOUNTER → 2018-07-11 | Outpatient (REF) | payer MEDICARE ==
[2018-07-11 12:00] LABS: INR 2.64; PROTHROMBIN TIME 28.8 SECONDS (12.1-14.4)
== END ==
LOC: M SFHCCLAY 08:21
PROVIDERS: ATTEND Family Medicine
DX: Z79.01 Long term (current) use of anticoagulants (principal)

== ENCOUNTER → 2018-07-25 | Outpatient (REF) | payer MEDICARE ==
[2018-07-25 11:43] LABS: INR 1.42; PROTHROMBIN TIME 17.6 SECONDS (12.1-14.4)
== END ==
LOC: M SFHCCLAY 07:41
PROVIDERS: ATTEND Family Medicine
DX: Z79.01 Long term (current) use of anticoagulants (principal)

== ENCOUNTER → 2018-08-08 | Outpatient (REF) | payer MEDICARE ==
[2018-08-08 12:07] LABS: INR 1.92; PROTHROMBIN TIME 22.3 SECONDS (12.1-14.4)
== END ==
LOC: M SFHCCLAY 07:55
PROVIDERS: ATTEND Family Medicine
DX: Z79.01 Long term (current) use of anticoagulants (principal)

== ENCOUNTER → 2018-08-22 | Outpatient (REF) | payer MEDICARE ==
[2018-08-22 12:03] LABS: INR 2.62; PROTHROMBIN TIME 28.5 SECONDS (12.1-14.4)
== END ==
LOC: M SFHCCLAY 07:38
PROVIDERS: ATTEND Family Medicine
DX: Z79.01 Long term (current) use of anticoagulants (principal)

== ENCOUNTER → 2018-09-19 | Outpatient (REF) | payer MEDICARE ==
[~2018-09-19] MED LIST changes: -/WARF5TA PO; -ASPI1TAB PO; +ASPI81TA26 PO; +COUM1TAB17 PO; +OXYC1TAB23 PO; -PERCOCET PO
[2018-09-19 11:51] LABS: INR 2.85; PROTHROMBIN TIME 30.5 SECONDS (12.1-14.4)
== END ==
LOC: M SFHCCLAY 07:24
PROVIDERS: ATTEND Family Medicine
DX: Z79.01 Long term (current) use of anticoagulants (principal); H34.9 Unspecified retinal vascular occlusion

== ENCOUNTER → 2018-10-03 | Outpatient (REF) | payer MEDICARE ==
[2018-10-03 11:50] LABS: INR 3.4; PROTHROMBIN TIME 35.1 SECONDS (12.1-14.4)
== END ==
LOC: M SFHCCLAY 08:47
PROVIDERS: ATTEND Family Medicine
DX: Z79.01 Long term (current) use of anticoagulants (principal); H34.9 Unspecified retinal vascular occlusion

== ENCOUNTER → 2018-10-24 | Outpatient (REF) | payer MEDICARE ==
[2018-10-24 12:12] LABS: INR 2.88; PROTHROMBIN TIME 30.8 SECONDS (12.1-14.4)
== END ==
LOC: M SFHCCLAY 07:31
PROVIDERS: ATTEND Family Medicine
DX: Z79.01 Long term (current) use of anticoagulants (principal); H34.9 Unspecified retinal vascular occlusion

== ENCOUNTER → 2018-11-07 | Outpatient (REF) | payer MEDICARE ==
[2018-11-07 12:21] LABS: INR 1.77; PROTHROMBIN TIME 20.9 SECONDS (12.1-14.4)
== END ==
LOC: M SFHCCLAY 07:28
PROVIDERS: ATTEND Family Medicine
DX: Z79.01 Long term (current) use of anticoagulants (principal); H34.9 Unspecified retinal vascular occlusion

== ENCOUNTER → 2018-11-21 | Outpatient (REF) | payer MEDICARE ==
[2018-11-21 12:15] LABS: INR 2.49; PROTHROMBIN TIME 27.4 SECONDS (12.1-14.4)
== END ==
LOC: M SFHCCLAY 08:46
PROVIDERS: ATTEND Family Medicine
DX: Z51.81 Encounter for therapeutic drug level monitoring (principal); Z79.01 Long term (current) use of anticoagulants; H34.9 Unspecified retinal vascular occlusion

== ENCOUNTER → 2018-12-05 | Outpatient (REF) | payer MEDICARE ==
[2018-12-05 12:03] LABS: INR 2.93; PROTHROMBIN TIME 30.5 SECONDS (11.8-14.0)
== END ==
LOC: M SFHCCLAY 08:02
PROVIDERS: ATTEND Family Medicine
DX: Z79.01 Long term (current) use of anticoagulants (principal); H34.9 Unspecified retinal vascular occlusion

== ENCOUNTER → 2018-12-19 | Outpatient (REF) | payer MEDICARE ==
[~2018-12-19] MED LIST changes: +CEPH500C; -SIMV10TA2 PO; +SIMV10TA21 PO
[2018-12-19 13:31] LABS: INR 2.19; PROTHROMBIN TIME 24.2 SECONDS (11.8-14.0)
== END ==
LOC: M SFHCCLAY 07:45
PROVIDERS: ATTEND Family Medicine
DX: Z79.01 Long term (current) use of anticoagulants (principal); H34.9 Unspecified retinal vascular occlusion

== ENCOUNTER → 2019-01-09 | Outpatient (REF) | payer MEDICARE ==
[~2019-01-09] MED LIST changes: -CEPH500C; +SIMV10TA2 PO; -SIMV10TA21 PO
[2019-01-09 13:18] LABS: INR 2.13; PROTHROMBIN TIME 23.6 SECONDS (11.8-14.0)
== END ==
LOC: M SFHCCLAY 08:04
PROVIDERS: ATTEND Family Medicine
DX: Z79.01 Long term (current) use of anticoagulants (principal); H34.9 Unspecified retinal vascular occlusion

== ENCOUNTER → 2019-02-06 | Outpatient (REF) | payer MEDICARE ==
[2019-02-06 12:51] LABS: INR 2.04; PROTHROMBIN TIME 22.8 SECONDS (11.8-14.0)
== END ==
LOC: M SFHCCLAY 08:26
PROVIDERS: ATTEND Family Medicine
DX: Z79.01 Long term (current) use of anticoagulants (principal); H34.9 Unspecified retinal vascular occlusion

== ENCOUNTER → 2019-03-07 | Outpatient (REF) | payer MEDICARE ==
[2019-03-07 12:29] LABS: INR 2.31; PROTHROMBIN TIME 25.2 SECONDS (11.8-14.0)
== END ==
LOC: M SFHCCLAY 07:57
PROVIDERS: ATTEND Family Medicine
DX: Z79.01 Long term (current) use of anticoagulants (principal); H34.9 Unspecified retinal vascular occlusion

== ENCOUNTER → 2019-04-04 | Outpatient (REF) | payer MEDICARE ==
[2019-04-04 11:53] LABS: INR 2.28; PROTHROMBIN TIME 24.9 SECONDS (11.8-14.0)
== END ==
LOC: M SFHCCLAY 08:05
PROVIDERS: ATTEND Family Medicine
DX: H34.9 Unspecified retinal vascular occlusion (principal); Z79.01 Long term (current) use of anticoagulants

== ENCOUNTER → 2019-04-13 | Outpatient (REF) | payer MEDICARE ==
[2019-04-13 16:45] LABS: HEMATOCRIT 46.8 % (42.0-52.0); HEMOGLOBIN 14.7 g/dl (13.5-17.5); MEAN CORPUSCULAR HEMOGLOBIN 29.7 pg (27.0-33.0); MEAN CORPUSCULAR HGB CONC 31.4 g/dl (32.0-36.5); MEAN CORPUSCULAR VOLUME 94.5 fl (80.0-96.0); PLATELET COUNT, AUTOMATED 448 10^3/uL (150-450); RED BLOOD COUNT 4.95 10^6/uL (4.30-6.10); WHITE BLOOD COUNT 8.8 10^3/uL (4.0-10.0)
[2019-04-13 17:12] LABS: ALBUMIN 3.5 GM/DL (3.2-5.2); BILIRUBIN,TOTAL 0.4 MG/DL (0.2-1.0); CALCIUM LEVEL 9.7 MG/DL (8.8-10.2); CREATININE FOR GFR 1.57 MG/DL (0.70-1.30); PERCENT SATURATION 43.8 % (19.7-50.0); POTASSIUM SERUM 4.8 MEQ/L (3.5-5.1); THYROID STIMULATING HORMONE 3.08 uIU/ML (0.358-3.740); TOTAL PROTEIN 8.1 GM/DL (6.4-8.2)
== END ==
LOC: M SFHCCLAY 13:28
PROVIDERS: ATTEND Family Medicine
DX: M19.011 Primary osteoarthritis, right shoulder (principal); H34.231 Retinal artery branch occlusion, right eye; Z79.01 Long term (current) use of anticoagulants; R41.3 Other amnesia
CPT/HCPCS: 80053; 83550; 84443; 85027; G0463

== ENCOUNTER → 2019-05-08 | Outpatient (REF) | payer MEDICARE ==
[~2019-05-08] MED LIST changes: -SIMV10TA2 PO; +SIMV10TA21 PO
[2019-05-08 12:19] LABS: INR 2.38; PROTHROMBIN TIME 25.8 SECONDS (11.8-14.0)
== END ==
LOC: M SFHCCLAY 08:40
PROVIDERS: ATTEND Family Medicine
DX: Z79.01 Long term (current) use of anticoagulants (principal); H34.9 Unspecified retinal vascular occlusion

== ENCOUNTER → 2019-06-05 | Outpatient (REF) | payer MEDICARE ==
[2019-06-05 11:59] LABS: INR 1.96; PROTHROMBIN TIME 22.1 SECONDS (11.8-14.0)
== END ==
LOC: M SFHCCLAY 08:33
PROVIDERS: ATTEND Family Medicine
DX: Z79.01 Long term (current) use of anticoagulants (principal); H34.9 Unspecified retinal vascular occlusion

== ENCOUNTER 2019-06-19 08:50 | Emergency (ER) | payer MEDICARE ==
[~2019-06-19] VITALS: Ht 175.3 cm; Wt 82.5 kg
[2019-06-19] MEDS ORDERED: CEPH500C (09:04)
[2019-06-19 11:40] VITALS: BP 120/66
== END 2019-06-19 11:42 | disposition home or self-care (01) ==
LOC: M ED 08:50
DX: S02.2XXA Fracture of nasal bones, initial encounter for closed fracture (principal); S01.21XA Laceration without foreign body of nose, initial encounter; W10.8XXA Fall (on) (from) other stairs and steps, initial encounter; Y92.89 Other specified places as the place of occurrence of the external cause; I10 Essential (primary) hypertension; E78.00 Pure hypercholesterolemia, unspecified; F33.9 Major depressive disorder, recurrent, unspecified; Z79.899 Other long term (current) drug therapy; Z79.82 Long term (current) use of aspirin; Z79.01 Long term (current) use of anticoagulants

== ENCOUNTER → 2019-06-25 | Outpatient (CLI) | payer MEDICARE ==
[~2019-06-25] MED LIST changes: +CEPH500C
--- NOTE | 2019-06-25 11:19 | REP ---
Right shoulder: Three views. History: Acute pain. Comparison radiographs are from May 26, 2016. Findings: There is moderate osteoarthritis at the glenohumeral articulation with sclerosis and osteophyte formation. There is narrowing of the subacromial space consistent with degeneration of the rotator cuff. There is moderate osteoarthritis of the AC joint. There is periarticular soft-tissue calcification consistent with calcific tendonitis or bursitis. No fracture or acute erosive changes seen. Impression: Advanced degenerative changes including degeneration of the rotator cuff and moderate AC joint and glenohumeral joint osteoarthritis. Periarticular calcification is seen as well. Electronically Signed by Jamie Klein MD 06/25/2019 07:44 P
== END ==
LOC: M CLY 09:31
PROVIDERS: ATTEND Family Medicine
DX: M19.011 Primary osteoarthritis, right shoulder (principal); M25.511 Pain in right shoulder
CPT/HCPCS: 73030; G0463

== ENCOUNTER → 2019-07-04 | Outpatient (REF) | payer MEDICARE ==
[2019-07-04 12:34] LABS: INR 2.23; PROTHROMBIN TIME 24.5 SECONDS (11.8-14.0)
== END ==
LOC: M SFHCCLAY 08:14
PROVIDERS: ATTEND Family Medicine
DX: H34.9 Unspecified retinal vascular occlusion (principal); Z79.01 Long term (current) use of anticoagulants